=== PATIENT | female | born 1970 | race Caucasian/White ===

== ENCOUNTER 2018-09-28 | Inpatient (IN) | payer OTHER ==
[~2018-09-28] VITALS: Ht 157.5 cm; Wt 86.7 kg
[2018-09-28 00:38] LABS: microscopic required? YES; urine erythrocyte 3+ (NEGATIVE)
[2018-09-28 00:42] LABS: BASOPHIL % 0.4 % (0-2); PLATELET COUNT 346 x10^3mcL (130-400); RED CELL DISTRIBUTION WIDTH 18.1 % (11.5-14.5)
[2018-09-28 00:55] LABS: ALKALINE PHOSPHATASE 72 U/L (46-116); ALT/SGPT 31 U/L (14-59); AST/SGOT 17 U/L (15-37); BILIRUBIN TOTAL 0.4 mg/dL (0.20-1.00); CALCIUM 9.3 mg/dL (8.5-10.1); CARBON DIOXIDE 22.1 mmol/L (21-32); CHLORIDE SERUM 102 mmol/L (98-107); CREATININE SERUM 0.8 mg/dL (0.6-1.0); GFR1 > 60 mL/min; GLUCOSE SERUM 110 mg/dL (74-106); LIPASE 110 IU/L (73-393); POTASSIUM SERUM 3.3 mmol/L (3.5-5.1); SODIUM SERUM 137 mmol/L (136-145); TOTAL PROTEIN, SERUM 7.7 g/dL (6.4-8.2)
[2018-09-28 01:00] LABS: ALBUMIN 3.2 g/dL (3.4-5.0)
[2018-09-28 14:38] VITALS: BP 130/66
[2018-09-28 17:14] VITALS: BP 105/59
[2018-09-29 05:40] VITALS: BP 120/62
[2018-09-29 07:50] LABS: CALCIUM 8.9 mg/dL (8.5-10.1); CARBON DIOXIDE 25.7 mmol/L (21-32); CHLORIDE SERUM 105 mmol/L (98-107); CREATININE SERUM 0.8 mg/dL (0.6-1.0); GFR1 > 60 mL/min; GLUCOSE SERUM 108 mg/dL (74-106); SODIUM SERUM 138 mmol/L (136-145)
[2018-09-29 07:57] LABS: ALBUMIN 2.7 g/dL (3.4-5.0); ALKALINE PHOSPHATASE 64 U/L (46-116); ALT/SGPT 33 U/L (14-59); AST/SGOT 24 U/L (15-37); BILIRUBIN TOTAL 0.2 mg/dL (0.20-1.00); CALCIUM 8.8 mg/dL (8.5-10.1); CARBON DIOXIDE 24.1 mmol/L (21-32); CHLORIDE SERUM 105 mmol/L (98-107); CREATININE SERUM 0.7 mg/dL (0.6-1.0); GFR1 > 60 mL/min; GLUCOSE SERUM 104 mg/dL (74-106); POTASSIUM SERUM 4.3 mmol/L (3.5-5.1); SODIUM SERUM 138 mmol/L (136-145)
[2018-09-29 08:21] LABS: PLATELET COUNT 307 x10^3mcL (130-400)
[2018-09-29 08:32] LABS: RED CELL DISTRIBUTION WIDTH 17.8 % (11.5-14.5)
[2018-09-29 09:17] VITALS: BP 121/60
[2018-09-29] MEDS ORDERED: AUG500 PO (10:13)
[2018-09-29 11:26] VITALS: BP 121/60
[2018-09-29 13:06] LABS: BAND NEUTROPHIL 3 % (0-10); BASOPHIL 1 % (0-2); MONOCYTE 6 % (0-7); SEGMENTED NEUTROPHILS 73 % (37-75)
[2018-09-29 13:07] LABS: rbc morphology (normal/abnorm) ABNORMAL (NORMAL)
[2018-09-29 13:09] LABS: PLATELET MORPHOLOGY PLATELETS NORMAL
[2018-09-29 13:11] LABS: BAND NEUTROPHIL 3 % (0-10); BASOPHIL 1 % (0-2); MONOCYTE 6 % (0-7); SEGMENTED NEUTROPHILS 73 % (37-75)
[2018-09-29 13:12] LABS: PLATELET MORPHOLOGY PLATELETS NORMAL; rbc morphology (normal/abnorm) ABNORMAL (NORMAL)
== END 2018-09-29 14:23 | disposition home or self-care (01) | DRG 343 ==
LOC: ED → MU 04:39
PROVIDERS: Emergency Medicine; Internal Medicine; Surgery
PROC: 0DTJ4ZZ Resection of Appendix, Percutaneous Endoscopic Approach (ICD-10-PCS; principal; 2018-09-28 08:00)
DX: K35.80 Unspecified acute appendicitis (principal); J45.909 Unspecified asthma, uncomplicated; Z90.49 Acquired absence of other specified parts of digestive tract; Z80.0 Family history of malignant neoplasm of digestive organs; D72.829 Elevated white blood cell count, unspecified; E87.6 Hypokalemia
CPT/HCPCS: 97116-GP; 97530-GP; J1170; J1885; J2270; J2405; J2543; J2550; J3010; J3490; J7030; J7040; J7120